=== PATIENT | male | born 1950 | race Caucasian/White ===

== ENCOUNTER 2023-04-11 19:03 | Emergency (ER) | payer OTHER, BC ==
[2023-04-11 19:11] VITALS: PULSE 90; RESP 18; TEMP 98.1; BMI 25.1
[2023-04-11] MEDS ORDERED: LISINOPRIL 10 MG TABLET PO ONE (20:23)
[2023-04-11] MEDS ORDERED: LISINOPRIL 10 MG TABLET ONE (20:43)
[2023-04-11 20:58] VITALS: BP 173/84
== END 2023-04-11 21:32 | disposition home or self-care (01) ==
LOC: JER 19:03
DX: I10 Essential (primary) hypertension (principal)
CPT/HCPCS: 93005; 93010; 99283-25